=== PATIENT | male | born 1985 | race Caucasian/White ===

== ENCOUNTER 2021-11-28 11:09 | Emergency (ER) | payer OTHER ==
[2021-11-28 12:57] LABS: BASOPHIL 0.6 % (0-2); EOSINOPHIL 0.1 % (0-5); HCT 32.7 % (42.0-52.0); HGB 12.5 g/dl (13.2-18.0); LYMPHOCYTE 13.5 % (15-48); MCH 33.6 pg (25.0-31.0); MCHC 38.2 g/dL (32.0-36.0); MCV 87.9 fL (78.0-100.0); MONOCYTE 11.4 % (0-12); MPV 10.1 fL (6.0-9.5); NRBC 0.2; PLT 156 K/uL (150-400); RBC 3.72 M/uL (4.70-6.00)
[2021-11-28 12:58] LABS: ALBUMIN 3.3 g/dL (3.4-5.0); ALKALINE PHOSHATASE 77 U/L (46-116); ALT 28 U/L (16-63); AST 54 U/L (15-37); BILIRUBIN - TOTAL 1.4 mg/dL (0.2-1.0); BUN 18 mg/dL (7-18); BUN/CREAT RATIO (CALC) 16.5 RATIO; CHLORIDE 84 mmol/L (98-107); CO2 (BICARBONATE) 26 mmol/L (21-32); CREATININE 1.09 mg/dL (0.67-1.17); GLOBULIN (CALCULATION) 3.9 g/dL; GLUCOSE 144 mg/dL (74-106); POTASSIUM 2.5 mmol/L (3.5-5.1); TOTAL PROTEIN 7.2 g/dL (6.4-8.2)
[2021-11-28 13:20] LABS: CORONAVIRUS 2019 SARS-COV-2 NEGATIVE (NEGATIVE); INFLUENZA A NAA NEGATIVE (NEGATIVE)
[2021-11-28 18:02] LABS: BILIRUBIN NEGATIVE (NEGATIVE); BLOOD TRACE-INTACT Ery/uL (NEGATIVE); CLARITY CLEAR (CLEAR); COLOR YELLOW (YELLOW); GLUCOSE (U) NORMAL (NORMAL); LEUKOCYTES TRACE Leu/uL (NEGATIVE); NITRITE NEGATIVE (NEGATIVE); PROTEIN 1+ mg/dL (NEGATIVE); pH 6.5 (5.0-9.0)
[2021-11-28 18:12] LABS: AMORPHOUS URATES CRYSTALS LARGE; URINARY RBC RARE; URINARY WBC RARE
[2021-11-28 19:30] LABS: AMPHETAMINES NEGATIVE (NEGATIVE); BARBITURATES NEGATIVE (NEGATIVE); ECSTASY (MDMA) NEGATIVE (NEGATIVE); MARIJUANA (THC) NEGATIVE (NEGATIVE); METHADONE NEGATIVE (NEGATIVE); OPIATES NEGATIVE (NEGATIVE); OXYCODONE NEGATIVE (NEGATIVE)
[2021-11-28 19:31] LABS: BUN/CREAT RATIO (CALC) 17.9 RATIO; CREATININE 0.95 mg/dL (0.67-1.17); MAGNESIUM 2.2 mg/dL (1.8-2.4)
[2021-11-28 19:47] LABS: POTASSIUM 2.7 mmol/L (3.5-5.1)
[2021-11-29 09:04] LABS: BUN/CREAT RATIO (CALC) 13.7 RATIO; CREATININE 0.95 mg/dL (0.67-1.17); MAGNESIUM 1.9 mg/dL (1.8-2.4)
== END 2021-11-29 18:53 | disposition other institution (70) ==
LOC: FER 11:09
PROVIDERS: Emergency Medicine
DX: S42.252A Displaced fracture of greater tuberosity of left humerus, initial encounter for closed fracture (principal); E87.1 Hypo-osmolality and hyponatremia; E87.6 Hypokalemia; Z20.822 Contact with and (suspected) exposure to COVID-19; W19.XXXA Unspecified fall, initial encounter; Y92.009 Unspecified place in unspecified non-institutional (private) residence as the place of occurrence of the external cause
CPT/HCPCS: 36415; 70450; 71045; 73020; 73030; 80048; 80053; 80305; 81001; 83735; 84145; 84484; 85025; 93005; 96365; 96375; 99152; G0480; J2704; J3411; J3475; J3480; J7030; U0002